=== PATIENT | male | born 1980 | race African-American/Black ===

== ENCOUNTER 2017-08-31 00:54 | Inpatient (IN) | payer MEDICARE, MEDICAID ==
[2017-08-31] VITALS (15 sets, daily range): BP systolic 105–163; BP diastolic 50–110
[~2017-08-31] VITALS: Ht 195.6 cm; Wt 109.8 kg
--- NOTE | 2017-08-31 01:15 | NUR ---
ER MD SCOTT AT BEDSIDE
[2017-08-31] MEDS ORDERED: IV NS 0.9% 1,000 ML BAG IV ONE ×4 (01:30→02:30)
--- NOTE | 2017-08-31 01:30 | NUR ---
NAHOMY KATE STARTED 18G RAC
--- NOTE | 2017-08-31 01:30 | NUR ---
BS IS 40. ER MADE AWARE
[2017-08-31] MEDS ORDERED: DEXTROSE 50%-WATER 50 ML DISP.SYRIN ONE ×3 (01:31→05:37)
--- NOTE | 2017-08-31 01:35 | NUR ---
BIB MOTHER C/O SOB TODAY, PER MOTHER PT ALTERED X "FEW DAYS." DEFECTIVE DEFIB REMOVED PER [facility] X1 MONTH AGO. PT HAS SOME SLIGHT APNEA BUT OTHERWISE STABLE. MOTHER AT BEDSIDE. WILL CONTINUE TO MONITOR FOR ANY CHANGES
--- NOTE | 2017-08-31 01:40 | NUR ---
EKG AT BEDSIDE
--- NOTE | 2017-08-31 01:42 | NUR ---
PT OFF TO CT SCAN
--- NOTE | 2017-08-31 01:48 | NUR ---
PER MOTHER "HE TOOK HIS AMBIEN AT 9PM"
[2017-08-31 01:53] LABS: BASOPHILS # (AUTO) 0.1 /CMM (0.0-0.2); BASOPHILS % (AUTO) 1.4 % (0.0-2.0); EOSINOPHILS % (AUTO) 0.3 % (0.0-6.0); HEMATOCRIT 42 % (39-51); HEMOGLOBIN 12.9 g/dL (13.5-17.5); INR 1.74 (0.87-1.13); LYMPHOCYTES # (AUTO) 2.8 /CMM (0.8-4.8); LYMPHOCYTES % (AUTO) 28.5 % (20.0-44.0); MEAN CORPUSCULAR HEMOGLOBIN 25 PG (26.0-33.0); MEAN CORPUSCULAR HGB CONC 31 g/dl (31.0-36.0); MEAN CORPUSCULAR VOLUME 80 fL (80-96); MONOCYTES # (AUTO) 0.8 /CMM (0.1-1.30); NEUTROPHILS # (AUTO) 6.1 /CMM (1.8-8.9); NEUTROPHILS % (AUTO) 61.8 % (43.0-81.0); PLATELET COUNT (AUTO) 175 /CMM (150-450); RDW COEFFICIENT OF VARIATION 20.6 (11.5-15.0); RED BLOOD CELL COUNT(AUTO) 5.22 MIL/uL (4.5-6.0); WHITE BLOOD COUNT (AUTO) 9.8 K/uL (4.3-11.0)
--- NOTE | 2017-08-31 01:55 | NUR ---
PT BACK FROM CT SCAN. STABLE
[2017-08-31 01:56] LABS: ALANINE AMINOTRANSFERASE 61 U/L (12-78); ALBUMIN 2.5 g/dL (3.4-5.0); ALCOHOL, BLOOD < 3 mg/dL (0-0); ALKALINE PHOSPHATASE 776 U/L (46-116); ASPARTATE AMINOTRANSFERASE 92 U/L (15-37); BILIRUBIN,DIRECT 2.2 mg/dL (0.0-0.2); BILIRUBIN,TOTAL 3.3 mg/dL (0.2-1.0); CALCIUM, SERUM 8.2 mg/dL (8.5-10.1); CARBON DIOXIDE 22 mmol/L (21-32); CHLORIDE 97 mmol/L (98-107); CREATININE 1.2 mg/dL (0.6-1.3); POTASSIUM 4.3 mmol/L (3.5-5.1); SODIUM SERUM 132 mmol/L (136-145); TOTAL PROTEIN, SERUM 8.4 g/dL (6.4-8.2); UREA NITROGEN, BLOOD 14 mg/dL (7-18)
[2017-08-31 01:58] LABS: GLUCOSE 40 mg/dL (74-106)
[2017-08-31 01:59] LABS: ACETAMINOPHEN 0 ug/ml (10-30); SALICYLATE < 0.2 mg/dL (2.8-20.0)
[2017-08-31 02:00] LABS: TROPONIN I 2.178 ng/mL (0.00-0.056)
[2017-08-31] MEDS ORDERED: DEXTROSE 50%-WATER 50 ML DISP.SYRIN IVP ONE ×3 (02:00→05:43)
--- NOTE | 2017-08-31 02:14 | NUR ---
PT TO ATTEMPT TO URINATE IN BATHROOM. NEXT STEP WILL BE IN/OUT CATHETER
--- NOTE | 2017-08-31 02:17 | NUR ---
JAYASHREE DIMPLING MACHINE OPERATOR CALLED AND LEFT MESSAGE. VEGETABLE GROWER ALSO NOTIFIED TO CALL DIMPLING MACHINE OPERATOR
--- NOTE | 2017-08-31 02:21 | NUR ---
RECEIVED CALL BACK FROM [employer]. COMMUNITY EDUCATOR STATED SHE WILL BE COMING IN WITHIN 30 MINUTES.
[2017-08-31] MEDS ORDERED: LIDOCAINE 2% JEL UROJET 10 ML MM ONE (02:22)
[2017-08-31] MEDS ORDERED: ASPIRIN 325 MG TABLET PO ONE (02:30)
[2017-08-31] MEDS ORDERED: ASPIRIN 325 MG TABLET ONE (02:30)
[2017-08-31 02:41] LABS: APPEARANCE,URINE CLEAR (CLEAR); BILIRUBIN,URINE 2+ (NEGATIVE); BLOOD, URINE 2+ Ery/uL (NEGATIVE); COLOR,URINE DARK YELLOW (YELLOW); KETONES,URINE NEGATIVE (NEGATIVE); LEUKOCYTE ESTERASE ,URINE NEGATIVE (NEGATIVE); NITRITE, URINE POSITIVE (NEGATIVE); PROTEIN,URINE 3+ mg/dl (NEGATIVE); UGLUCOSE NEGATIVE (NEGATIVE)
--- NOTE | 2017-08-31 02:41 | NUR ---
SHIRRING MACHINE OPERATOR AT BEDSIDE
[2017-08-31 02:44] LABS: BACTERIA,URINE Many /HPF (None Seen); SQUAMOUS EPITHELIAL CELL,UR Moderate /HPF (None Seen)
[2017-08-31] MEDS ORDERED: ZOLP5TAB2 PO (03:00)
[2017-08-31] MEDS ORDERED: INSU100C4 SQ (03:00)
[2017-08-31] MEDS ORDERED: CLIN300C11 PO (03:00)
[2017-08-31] MEDS ORDERED: INSU100V7 SQ (03:00)
--- NOTE | 2017-08-31 03:02 | NUR ---
REPORT GIVEN TO FILI
--- NOTE | 2017-08-31 03:27 | NUR ---
BS IS 111. CHRISTOS PORTILLO MADE AWARE
--- NOTE | 2017-08-31 03:51 | NUR ---
PT TO BE FORREST INSTEAD OF TELE
--- NOTE | 2017-08-31 03:51 | NUR ---
DR. SCOTT SPOKE TO TRACY LOZA REGARDING POC/ ADMISSION
--- NOTE | 2017-08-31 03:53 | NUR ---
called house superivisor for FORREST bed per MD [place]
[2017-08-31] MEDS ORDERED: HYDROCODONE/APAP 5/325MG 1 EACH TABLET PO PRN (04:00)
[2017-08-31] MEDS ORDERED: CEFTRIAXONE 1 G in IV D5W 50 ML IV SCH (04:00)
[2017-08-31] MEDS ORDERED: ONDANSETRON HCL/PF 4 MG/2 ML VIAL IVP PRN (04:00)
[2017-08-31] MEDS ORDERED: MAGNESIUM HYDROXIDE 30 ML UDC PO PRN (04:00)
[2017-08-31] MEDS ORDERED: VANCOMYCIN 1 GM in IV D5W 250 ML IV SCH (04:00)
[2017-08-31] MEDS ORDERED: MAG HYDROX/AL HYDROX/SIMETH 30 ML UDC PO PRN (04:00)
[2017-08-31] MEDS ORDERED: ACETAMINOPHEN 325 MG TABLET PO PRN (04:00)
--- NOTE | 2017-08-31 04:42 | NUR ---
PT TRANSFERRED PER [facility]S PROTOCOL.
[2017-08-31] MEDS ORDERED: CEFTRIAXONE 1 G VIAL ONE (05:11)
[2017-08-31] MEDS ORDERED: Sodium Chloride 154 MEQ in IV 10% DEXTROSE 1,000 ML IV PRN (06:00)
[2017-08-31] MEDS ORDERED: VANCOMYCIN 1 GM VIAL ONE (06:09)
--- NOTE | 2017-08-31 06:30 | NUR ---
RN NOTES 0445 AM - ADMITTED A 37 YEARS OLD MALE PT FROM ER DIAGNOSED WITH NSTEMI SECONDARY TO UTI POSSIBLE ENDOCARDITIS. UNDER SHAYLEE DAGO SENIOR TECHNICAL RECRUITER. WITH HISTORY OF BRADYCARDIA, SCHIZOPHRENIA, TOE INFECTION, SEIZURE, DEFECTIVE DEFIB, DEFIB REMOVED AT [facility] A MONTH AGO. ALLERGIC TO CARBAMAZEPINE, AND DIVALPROEX SODIUM. MOM AT BEDSIDE, PT IS MORE ALTERED COMPARE TO HIS BASELINE. TELE MONITOR PLACED REVEALS ST HR 109 SATING 100% COLD AND CLAMMY BS = 60 PT IS RESPONSIVE TO NAME AND ANSWERED A SHORT QUESTION.. IV SITE ON RAC G 18 INTACT AND PATENT WITH ONGOING NS BOLUS. BILATERAL PLANTAR FULL THICKNESS LOSS AND BLE LESIONS. AND LEFT KNEE. WOUND RIGHT [place] LESION, PHOTO TAKEN. 0530 - IV ROCEPHIN 1 G STARTED 0535 AM - BS CHECKED BS 60 MG/DL D 50% GIVEN RECHECKED AFTER 15 MINUTES PT BS 122 MG/DL. SENIOR TECHNICAL RECRUITER SHAYLEE ON THE FLOOR WITH ORDER ACKNOWLEDGE. 0630AM - VANCOMYCIN STARTED. PT IS MORE AWAKE AND ASKED TO CALL HER MOM, AND WATCH TV. CALL LIGHT KEPT WITHIN EASY REACH INSTRUCTION PROVIDED. WILL ENDORSED CONTINUITY OF CARE TO AM NURSE.
[2017-08-31] MEDS ORDERED: FEE PK DOSING 1 MIN EA MC ONE (07:26)
--- NOTE | 2017-08-31 07:30 | NUR ---
FORREST RN AM NOTES RCVD PT AWAKE AND ALERT X 1 -2, VERY LETHARGIC. ON 2 LPM, NOT IN ANY DISTRESS, TELEMETRY READS ST HR 112, DENIES PAIN, RT AC G18 IV SITE, PATENT. INTACT, ONGOING VANCO IV, SITE CLEAR, PT HAS WOUNDS OVER BILATERAL FEET AND SKIN DISCOLORATION THROUGHOUT THE BODY. BEDREST/USES URINAL. WILL CONTINUE TO MONITOR PT FOR SAFETY AND COMFORT. CALL LIGHT WITHIN REACH. BED IN LOW AND LOCKED POSITION.
[2017-08-31 08:19] LABS: MAGNESIUM 1.7 mg/dL (1.8-2.4); PHOSPHORUS 2.9 mg/dL (2.5-4.9)
[2017-08-31 08:24] LABS: TROPONIN I 2.087 ng/mL (0.00-0.056)
--- NOTE | 2017-08-31 08:24 | NUR ---
FORREST RN NOTES LACTIC ACID 6.1 TROPONIN 2.087. RELAYED TO ARLIN DANIELS TUBE SPLICER VIA EXCHANGE.
[2017-08-31] MEDS ORDERED: BLOO-668 IN (08:42)
[2017-08-31] MEDS ORDERED: INSU100V11 SQ (08:42)
[2017-08-31] MEDS: PANTOPRAZOLE 40 MG TABLET.DR PO SCH (08:54)
--- NOTE | 2017-08-31 09:30 | NUR ---
FORREST RN NOTES ADMINISTERED DUE MEDS.
[2017-08-31] MEDS ORDERED: IV D5/ 0.9% NACL 1,000 ML IV PRN (10:30)
--- NOTE | 2017-08-31 10:39 | NUR ---
FORREST RN NOTES LACTIC ACID 6.1 TROPONIN 2.087. DIANA MOLINA STUDENT FOR ARLIN DANIELS SAW PATIENT. PER DR. ARANA TO TRANSFER PATIENT TO ICU.
[2017-08-31] MEDS: Magnesium 1GM/D5W 100ML PREMIX 100 ML IV SCH ×2 (10:58→13:28)
[2017-08-31 11:33] LABS: SERUM AMMONIA 34 umol/L (11-32)
--- NOTE | 2017-08-31 11:45 | NUR ---
FORREST NAHOMY ESTRADA TRANSFERRED TO ICU RM 259.
[2017-08-31 11:46] LABS: THYROID STIMULATING HORMONE 4.095 uIU/mL (0.358-3.74)
[2017-08-31 11:47] LABS: B-TYPE NATRIURETIC PEPTIDE 2477 PG/ML (0-125); MAGNESIUM 1.6 mg/dL (1.8-2.4)
[2017-08-31 12:05] LABS: ABG BASE EXCESS -4.8 mmol/L; ABG OXYGEN SATURATION 92.3 % (92.0-98.5); ABG PCO2 29.8 mmHg (35.0-45.0); ABG PH 7.414 (7.350-7.450); ABG PO2 69.2 mmHg (75.0-100.0); AaDO2 44.8 mmHg; COHb 1.4 % (0.5-1.5); MetHb 0.7 % (0.0-1.5); O2Hb 90.4 % (94.0-97.0); SITE, ABG Right Radial; VENT MODE, BG ROOM AIR
--- NOTE | 2017-08-31 12:12 | NUR ---
TRANSFER TO STAKING ENGINEER NOTE RCVD PT AWAKE AND ALERT X2, SHOWING NO S/O DISTRESS/PAIN AT THIS TIME. ST ON TELE. ON RA TOLERATING WELL. PT HAS WOUNDS OVER BILATERAL FEET AND SKIN DISCOLORATION THROUGHOUT THE BODY. RIGHT AC #18 C/D/I/PATENT. NO S/O INFILTRATION/PHLEBITIS OBSERVED IVF INFUSING. WILL CONTINUE TO MONITOR PT FOR SAFETY AND COMFORT. CALL LIGHT WITHIN REACH. BED IN LOW AND LOCKED POSITION. PT'S MOM AT BEDSIDE UPDATED ON PT'S CONDITION.
--- NOTE | 2017-08-31 12:37 | NUR ---
ALTERATION TAILOR NOTE TRACY MCADAMS CALLED REGARDING LACTIC ACID TRENDING UP 6.4. HE RECOMMENDED TO BOLUS PT WITH NS 1L AND RE-CHECK LACTIC ACID. ORDERS ENTERED AND CARRIED OUT. WILL CONTINUE TO MONITOR.
[2017-08-31] MEDS ORDERED: IV NS 0.9% 1,000 ML IV PRN (13:00)
[2017-08-31] MEDS: BLOOD SUGAR DIAGNOSTIC 1 EACH STRIP IN SCH ×3 (13:28→21:22)
[2017-08-31] MEDS: VANCOMYCIN 1.25 GM in IV D5W 500 ML IV SCH ×2 (13:29→21:22)
[2017-08-31] MEDS ORDERED: GADOVERSETAMIDE 2.5 MMOL/5 ML VIAL IJ ONE (15:28)
[2017-08-31] MEDS ORDERED: GADOVERSETAMIDE 5 MMOL/10 ML VIAL IJ ONE (15:28)
[2017-08-31] MEDS ORDERED: FUROSEMIDE 100 MG/10 ML VIAL IV ONE ×2 (15:30→19:00)
[2017-08-31] MEDS: LACTOBACILLUS RHAMNOSUS GG 1 EACH CAP.SPRINK PO SCH (16:42)
[2017-08-31] MEDS: DOBUTamine 500 MG in IV D5W 210 ML IV PRN (18:48)
--- NOTE | 2017-08-31 19:05 | NUR ---
PROPERTY MAINTENANCE SUPERVISOR NOTE PT AWAKE AND ALERT X2, DELAYED SPEECH, ST ON TELE. REMAINS ON RA. BSC IN ROOM. IV SITES C/D/I/PATENT. NO S/O INFILTRATION/PHLEBITIS OBSERVED IVF INFUSING. PT'S CARE WILL BE ENDORSED TO MD DO RESIDENT URGENT CARE RN FOR CONTINUITY OF CARE. BED IN LOW AND LOCKED POSITION. CALL LIGHT WITHIN REACH. LASIX GIVEN ORDERED, EFFECT OF THE MEDICATION EXPLAINED TO PT, PT ACKNOWLEDGED. URINAL PROVIDED
--- NOTE | 2017-08-31 19:45 | NUR ---
RIVET MAKER DF RECEIVED PT TO ROOM#259 PT A/OX2 CONFUSION,LETHARGIC,DROWSY. PER PAST ADMISSION NOTED PT DOCUMENTED WITH MILD RETARDATION. PT KNOWS WHERE HE IS ORIENTED TO SELF/SITUATION. PT WAS OBSERVED STANDING AT BEDSIDE URINATING ON THE FLOOR. AT 1848 PT RECEIVED 100 MG LASIX IVP . PT HAS ORDER FOR QUEEN CATH(PT REFUSES F/C PT URINATING IN URINAL. I EDUCATED PT ON THE EFFECTS OF LASIX.BED IN LOW LOCKED POSITION WITH BED ALARM ON, CALL LIGHT IN REACH. I INSTRUCTED PT TO CALL FOR ASSISTANCE PRIOR TO GETTING OUT OF BED.PT VERBALIZES AN UNDERSTANDING. PT HAS ORDER FOR U/S ABM/LIVER.VSS. PT ON DOBUTAMINE GTT AT FIXED RATE OF 5MCG.D10 @ 30ML/HR PT HYPO GLYCEMIA ON ADMISSION. ACCU CHECK OF 126 @2030.
[2017-08-31] MEDS: PIPERACILLIN /TAZOBACTAM 3.375 G in IV D5W 50 ML IV SCH (21:22)
[2017-09-01] VITALS (24 sets, daily range): BP systolic 91–149; BP diastolic 48–94
--- NOTE | 2017-09-01 01:00 | NUR ---
HEALTH SPA MANAGER DF PT WITH BLOOD GLUCOSE OF 223 PT ON D10@30ML/HR, PT WAS PREVIOUSLY HYPOGLYCEMIC. PT HAS HX OF DM. I WILL FOLLOW UP WITH MD/SCHOOL ATTENDANCE SECRETARY REGARDING D10 AND PT WILL NEED SLIDING SCALE COVERAGE. POC WAIT AND SEE WHAT NEXT ACCU CHECK WILL BE IN 3-4 HOURS.
[2017-09-01] MEDS: BLOOD SUGAR DIAGNOSTIC 1 EACH STRIP IN SCH ×7 (01:01→22:16)
--- NOTE | 2017-09-01 03:22 | NUR ---
RICE DRYER MECHANIC DF PT REMOVED MID LINE TO LEFT UPPER ARM WITH TIP IN TACT. PT WAS RESTLESS IN BED PT KEPT TURNING OVER AND OVER, WRAPPED HIMSELF IN IV TUBING AND MIDLINE WAS REMOVED. PT VERY PASSIVE TO EDUCATION AND INSTRUCTIONS.PT DIFFICULT IV ACCESS, WILL ATTEMPT TO REINSERT ANOTHER IV LINE.
[2017-09-01] MEDS: VANCOMYCIN 1.25 GM in IV D5W 500 ML IV SCH ×2 (04:27→13:00)
[2017-09-01 05:30] LABS: BASOPHILS % (AUTO) 0.5 % (0.0-2.0); EOSINOPHILS % (AUTO) 0.1 % (0.0-6.0); HEMATOCRIT 36 % (39-51); HEMOGLOBIN 11.5 g/dL (13.5-17.5); LYMPHOCYTES # (AUTO) 1.1 /CMM (0.8-4.8); LYMPHOCYTES % (AUTO) 13.1 % (20.0-44.0); MEAN CORPUSCULAR HEMOGLOBIN 25 PG (26.0-33.0); MEAN CORPUSCULAR HGB CONC 32 g/dl (31.0-36.0); MEAN CORPUSCULAR VOLUME 79 fL (80-96); MONOCYTES # (AUTO) 0.6 /CMM (0.1-1.30); MONOCYTES % (AUTO) 8.1 % (2.0-12.0); NEUTROPHILS # (AUTO) 6.3 /CMM (1.8-8.9); NEUTROPHILS % (AUTO) 78.2 % (43.0-81.0); PLATELET COUNT (AUTO) 152 /CMM (150-450); RDW COEFFICIENT OF VARIATION 21.3 (11.5-15.0); RED BLOOD CELL COUNT(AUTO) 4.54 MIL/uL (4.5-6.0)
[2017-09-01 05:40] LABS: CALCIUM, SERUM 7.2 mg/dL (8.5-10.1); CARBON DIOXIDE 23 mmol/L (21-32); CHLORIDE 101 mmol/L (98-107); CREATININE 1.1 mg/dL (0.6-1.3); GLUCOSE 274 mg/dL (74-106); POTASSIUM 3.8 mmol/L (3.5-5.1); SODIUM SERUM 132 mmol/L (136-145); UREA NITROGEN, BLOOD 14 mg/dL (7-18)
[2017-09-01 05:46] LABS: ALANINE AMINOTRANSFERASE 55 U/L (12-78); ALBUMIN 1.9 g/dL (3.4-5.0); ALKALINE PHOSPHATASE 553 U/L (46-116); ASPARTATE AMINOTRANSFERASE 79 U/L (15-37); BILIRUBIN,TOTAL 3.2 mg/dL (0.2-1.0); MAGNESIUM 1.4 mg/dL (1.8-2.4); PHOSPHORUS 2.1 mg/dL (2.5-4.9); TOTAL PROTEIN, SERUM 6.5 g/dL (6.4-8.2)
[2017-09-01] MEDS ORDERED: CEFTRIAXONE 1 G in IV D5W 50 ML IV SCH (06:00)
[2017-09-01 06:05] LABS: TROPONIN I 1.966 ng/mL (0.00-0.056)
[2017-09-01] MEDS: PIPERACILLIN /TAZOBACTAM 3.375 G in IV D5W 50 ML IV SCH ×4 (06:36→23:33)
--- NOTE | 2017-09-01 06:46 | NUR ---
HEATING AND VENTILATING TENDER DF PT REFUSES CONTINUOUS PULSE OXIMETER MONITORING. PT AGREES TO BE CHECKED Q 1 HOUR. VSS.
--- NOTE | 2017-09-01 06:51 | NUR ---
BOX SPRING UPHOLSTERER DF PAGED INSPECTOR CANNED FOOD RECONDITIONING EPIC STAINED GLASS JOINER/MD PT GLUCOSE OF 243/273 ON LAB DRAW. PT ON D10@30ML/HR. VSS.NAD NOTED.
[2017-09-01] MEDS: LACTOBACILLUS RHAMNOSUS GG 1 EACH CAP.SPRINK PO SCH ×2 (08:16→17:14)
[2017-09-01] MEDS: PANTOPRAZOLE 40 MG TABLET.DR PO SCH (08:16)
[2017-09-01] MEDS: FUROSEMIDE 100 MG/10 ML VIAL IV SCH ×3 (08:16→15:30)
[2017-09-01] MEDS: DOBUTamine 500 MG in IV D5W 210 ML IV PRN ×2 (08:17→17:25)
[2017-09-01] MEDS: POTASSIUM CL. PREMIX PERIPHER. 50 ML IV SCH ×4 (09:17→12:19)
[2017-09-01] MEDS ORDERED: SILVER NITRATE APPLICATOR 1 EA BOX TP STA (09:41)
[2017-09-01 11:10] LABS: *SPE A/G RATIO 0.6 (0.7-1.7); *SPE ALBUMIN 2.5 g/dL (2.9-4.4); *SPE ALPHA-1-GLOBULIN 0.2 g/dL (0.0-0.4); *SPE ALPHA-2-GLOBULIN 0.3 g/dL (0.4-1.0); *SPE BETA GLOBULIN 1.2 g/dL (0.7-1.3); *SPE GLOBULIN, TOTAL 4.4 g/dL (2.2-3.9); *SPE M-SPIKE Not Observed g/dL (Not Observed); *SPEGAMMA GLOBULIN 2.6 g/dL (0.4-1.8)
[2017-09-01] MEDS: Magnesium 1GM/D5W 100ML PREMIX 100 ML IV SCH ×4 (11:11→14:20)
--- NOTE | 2017-09-01 11:27 | NUR ---
WOUND CARE CONSULT PATIENT SEEN AND SKIN INTEGRITY ASSESSMENT DONE WITH THE EXCEPTION OF THE BILATERAL FEET. BILATERAL FEET AND ULCERS DEFERRED TO PODIATRY SURGEON DR RANDOLPH FOR CONSULT AND TREATMENT PLAN. PATIENT CURRENTLY WITHOUT ANY SKIN BREAKDOWN TO THE SACRAL REGION OR BACK. PATIENT NOTED TO HAVE MULTIPLE DRY SCARS/LESIONS TO THE BILATERAL LOWER EXTREMITIES. PATIENT ABLE TO MOVE ALL EXTREMITIES AND ABLE TO REPOSITION HIMSELF IN BED. AT TIMES DOES NEED SOME PROMPTING. RECOMMEND CONTINUE TO ASSIST PATIENT WITH TURNING AND OFF LOADING. HAD BRET AT THIS TIME. PATIENT WITH CARMEN AT 17. ALL SKIN MANAGEMENT DISCUSSED WITH NURSING AT THE BEDSIDE.
--- NOTE | 2017-09-01 11:37 | NUR ---
CARDIO TECH NOTE 0720: Received patient awake, A/Ox2. With episodes of pulling out IV lines from previous shift. S/E by Dr. Llamas, with order of Lasix 80mg x3 doses. Tolerated room air. No c/o any discomfort at this time. On 5mcg of Dobutamine, VSS at this time. ST 120's. 0830: Noted with episode of peeing in the bed. Cleaned patient and started Gunn cath. S/E by Livia MOLINA, made aware for LA 3.1 but have to give Lasix. Obtained order for PICC insertion for only 1PIV now and still on Dobutamine. Called mother Traci but no answer, awaiting call back. 0900: BS 274, held D5NS, made Livia MOLINA aware, awaiting orders, will continue holding for now, patient ate 100% on breakfast. 1000: Done with bilateral feet debridement by Dr. Jorge. Patient tolerated procedure well. 1120: S/E by wound consult. Continue skin treatments as ordered. No any significant changes noted at this time. Will continue to monitor.
[2017-09-01] MEDS ORDERED: K PHOS NEUTRAL 250 MG TABLET PO ONE (12:00)
[2017-09-01] MEDS ORDERED: FLUPHENAZINE HCL 10 MG TABLET PO SCH (13:00)
[2017-09-01] MEDS ORDERED: BENZTROPINE MESYLATE (1 MG) 1 MG TABLET PO PRN (13:00)
[2017-09-01] MEDS ORDERED: FLUPHENAZINE HCL 10 MG TABLET PO PRN (13:00)
[2017-09-01] MEDS ORDERED: BENZTROPINE MESYLATE (1 MG) 1 MG TABLET PO SCH (13:00)
[2017-09-01] MEDS ORDERED: DEXTROSE 50%-WATER 50 ML DISP.SYRIN IV PRN (14:00)
[2017-09-01] MEDS: INSULIN REGULAR, HUMAN 100 UNIT/ML 3 ML VIAL SQ PRN ×3 (14:21→22:15)
--- NOTE | 2017-09-01 15:42 | NUR ---
ROLL MECHANIC NOTE Mother at bedside, updated re: patient's condition. She is holding the consent for the PICC line until talked to MD's, given Livia MOLINA and Dr. Llamas as requested. Showed BLE SP wound debridement as requested, happy for the wound appearance now. Informed re: new orders, she is not happy re: Prolixin order. Called Dr. Cunha to inform. Informed mother re: the risks of having pressors on PIV and should be done through PICC. Said she will call MDs now. I told her i tried calling her 5x since this morning and left messages x2 but no answer.
[2017-09-01] MEDS ORDERED: FUROSEMIDE 100 MG/10 ML VIAL IV SCH (17:30)
--- NOTE | 2017-09-01 17:52 | NUR ---
CERTIFIED HISTOLOGIC TECHNICIAN NOTE Traci, mother spoke with Dr. Cunha and made aware that patient becomes more agitated and combative on Prolixin, and refused for the son to take. Mother spoke with Livia SEAMLESS TUBE MILL OPERATOR and SEAMLESS TUBE MILL OPERATOR explained need of Dobutamine and explained to mother to have PICC on administering Dobutamine. Traci said she will call again Dr. Wu, the primary cardio of the patient, unable to get hold at this time. Mother aware for the risk of taking Dobutamine via PIV, but still does not want to sign consent still at this time.
--- NOTE | 2017-09-01 18:13 | NUR ---
CHIROPRACTIC DOCTOR NOTE Mother left and told her to call later once she is decided for the PICC line consent.
--- NOTE | 2017-09-01 19:30 | NUR ---
ICU/RN. RECEIVED PT SLEEPING BUT AROUSES EASILY,OX3.MONITOR SHOWS SINUS TACHY W/OUT ECTOPICS.OFFERS NO COMPLAINTS.
--- NOTE | 2017-09-01 19:30 | NUR ---
ICU/RN. ON DOBUTAMINE DRIP AT 5MCG/KG/MIN,FOR EF 20-25%.
--- NOTE | 2017-09-01 20:15 | NUR ---
ICU/RN MOTHER CALLED TO GET AN UPDATE,CONDITION REPORT GIVEN.
[2017-09-01] MEDS ORDERED: VANCOMYCIN 1.25 GM in IV D5W 500 ML IV SCH (21:00)
--- NOTE | 2017-09-01 21:00 | NUR ---
ICU/RN PT SCREAMING AND ANGRY RE=PHONE NOT WORKING AND SCREAMED ([facility],I SWEAR TO GOD.)STAYED W/ PT FOR AWHILE LISTENING TO HIS COMPLAINTS.WENT TO LOOK FOR ANOTHER PHONE AND PT. ATTEMPTED TO CALL HIS MOM BUT HER PHONE IS NOT WORKING.PT AT TIMES LAUGHING SO HARD,AT TIMES TALKING TO SELF AND WHISPERING.APOLOGIZED TO ME WITHIN FEW MINUTES FOR HIS BEHAVIOR.
[2017-09-02] VITALS (15 sets, daily range): BP systolic 88–136; BP diastolic 43–75
[2017-09-02 04:44] LABS: BASOPHILS % (AUTO) 0.4 % (0.0-2.0); EOSINOPHILS % (AUTO) 0.4 % (0.0-6.0); HEMATOCRIT 33 % (39-51); HEMOGLOBIN 10.8 g/dL (13.5-17.5); LYMPHOCYTES # (AUTO) 1.7 /CMM (0.8-4.8); LYMPHOCYTES % (AUTO) 18.6 % (20.0-44.0); MEAN CORPUSCULAR HEMOGLOBIN 26 PG (26.0-33.0); MEAN CORPUSCULAR HGB CONC 32 g/dl (31.0-36.0); MEAN CORPUSCULAR VOLUME 79 fL (80-96); MONOCYTES # (AUTO) 0.6 /CMM (0.1-1.30); MONOCYTES % (AUTO) 6.8 % (2.0-12.0); NEUTROPHILS # (AUTO) 6.7 /CMM (1.8-8.9); NEUTROPHILS % (AUTO) 73.8 % (43.0-81.0); PLATELET COUNT (AUTO) 155 /CMM (150-450); RDW COEFFICIENT OF VARIATION 21.8 (11.5-15.0); RED BLOOD CELL COUNT(AUTO) 4.23 MIL/uL (4.5-6.0)
[2017-09-02 04:59] LABS: ALBUMIN 1.7 g/dL (3.4-5.0); BILIRUBIN,TOTAL 2.7 mg/dL (0.2-1.0); CALCIUM, SERUM 7.2 mg/dL (8.5-10.1); MAGNESIUM 1.5 mg/dL (1.8-2.4); PHOSPHORUS 1.8 mg/dL (2.5-4.9); POTASSIUM 3.2 mmol/L (3.5-5.1); TOTAL PROTEIN, SERUM 6.2 g/dL (6.4-8.2)
--- NOTE | 2017-09-02 05:00 | NUR ---
ICU/RN OFFERED BED BATH BUT FLATLY REFUSED.
[2017-09-02 05:20] LABS: TROPONIN I 2.004 ng/mL (0.00-0.056)
[2017-09-02] MEDS: PIPERACILLIN /TAZOBACTAM 3.375 G in IV D5W 50 ML IV SCH ×3 (05:35→17:45)
--- NOTE | 2017-09-02 07:05 | NUR ---
INSURANCE OFFICE MANAGER NOTES RECEIVED PATIENT AOX2 DELAYED SPEECH , WITH EPISODES OF AGITATION , TALKING TO HIMSELF , DENIES AND SUICIDAL OR HOMICIDAL IDEATION , DENIES SEEING OR HEARING VOICES AT THIS TIME , SPO2 OF 100% VIA RA , NOT IN ACUTE DISTRESS , SR 115 ON BEDSIDE MONITOR , FC DRAINING VIA GRAVITY WITH CLEAR YELLOW URINE , BILATERAL FOOT DRESSING C/D/I , IV OF L AC # 20 WITH NS @ TKO , DOBUTAMINE HELD AWAITING FOR PHARMACY TO DELIVER NEW BAG , ALL NEEDS ATTENDED , BED ON LOW AND LOCKED POSITION , SIDE RAILS X2 ,CALL LIGHT WITHIN REACH , HOB @ 35 , WILL CONTINUE TO MONITOR
--- NOTE | 2017-09-02 07:30 | NUR ---
SECONDARY HISTORY TEACHER NOTES PATIENT IS AGITATED , UNCOOPERATIVE , VERBALIZING THAT QUEEN CATHETER IS UNCOMFORTABLE , EXPLAINED THE BENEFITS OF QUEEN CATHETER FOR MEDICAL MANAGEMENT , PATIENT STILL AGITATED AND ANGRY VERBALIZED THAT " HE WILL PULL OUT THE CATHETER " REMOVED QUEEN CATHETER REQUESTED NOTED WITH 300ML OF CLEAR YELLOW URINE , URINAL AT BEDSIDE , WILL CONTINUE TO MONITOR
[2017-09-02] MEDS: BLOOD SUGAR DIAGNOSTIC 1 EACH STRIP IN SCH ×3 (07:39→17:45)
[2017-09-02] MEDS: PANTOPRAZOLE 40 MG TABLET.DR PO SCH (07:45)
[2017-09-02] MEDS: DOBUTamine 500 MG in IV D5W 210 ML IV PRN (07:46)
[2017-09-02] MEDS: LACTOBACILLUS RHAMNOSUS GG 1 EACH CAP.SPRINK PO SCH ×2 (08:02→17:44)
--- NOTE | 2017-09-02 08:54 | NUR ---
MEDICAL RECEPTION NOTES SEEN AND EVALUATED BY ABBE DANIELS , DISCUSSED LABS , CURRENT V/S SPO2 OF 100% VIA RA WITH NO DISTRESS , AFEBRILE , PT AOX2 WITH EPISODES OF AGITATION , S/P FOOT DEBRIDEMENT YESTERDAY BY DR GARRISON , DRESSING C/D/I , ON DOBUTAMINE @ 5MCG INFUSING WELL VIA L AC # 20 PENDING PICC LINE INSERTION ,
--- NOTE | 2017-09-02 08:57 | NUR ---
SOLUTION ANALYST NOTES SEEN AND EVALUATED BY DR ARANA , MOTHER AT BEDSIDE UPDATING ABOUT PT CONDITION ,
[2017-09-02] MEDS ORDERED: POTASSIUM CHLORIDE 20 MEQ TAB.PRT.SR PO ONE (09:00)
[2017-09-02] MEDS: NEUTRA PHOS 1 POWD.PACKET PO SCH ×2 (09:47→17:45)
[2017-09-02] MEDS: Magnesium 1GM/D5W 100ML PREMIX 100 ML IV SCH ×2 (09:50→11:17)
--- NOTE | 2017-09-02 10:25 | NUR ---
RN NOTES PT ON DOBUTAMINE AT 5MCG/KG/MIN , PT ON TELE , HR IN 110'S, ST, CONTINUE TO MONITOR
--- NOTE | 2017-09-02 10:25 | NUR ---
RN NOTE PATIENT CAME FROM ICU. ALERT AND ORIENTED, HE IS ABLE TO MAKE THINGS KNOWN. BREATHING EVEN AND UNLABORED WITH NO SOB OR DISTRESS NOTED. ON OCULARIST SINUS TACHY HR OF 110. LEFT WRIST IV SITE INTACT AND PATENT, NO S/SX OF INFILTRATION/INFECTION NOTED. ALL SAFETY AND COMFORT MEASURES PROVIDED. BED IN LOW POSITION AND LOCKED. PLACED CALL LIGHT WITHIN REACH. WILL CONTINUE TO MONITOR PLAN OF CARE AND CLOSELY. Addendum: 09/02/17 at 1107 by JASPREET NOLEN RN CORRECTION LEFT FA IV SITE G 22 AND R HAND IV G 20
[2017-09-02] MEDS: INSULIN REGULAR, HUMAN 100 UNIT/ML 3 ML VIAL SQ PRN ×2 (11:40→17:46)
[2017-09-02] MEDS ORDERED: NITROFURANTOIN/NITROFURAN MAC 100 MG CAPSULE PO SCH ×2 (17:00)
--- NOTE | 2017-09-02 18:50 | NUR ---
RN NOTE PATIENT REMAINED STABLE THROUGHOUT SHIFT. BREATHING EVEN UNLABORED WITH NO SOB OR DISTRESS NOTED. HE IS ABLE TO MAKE THINGS KNOWN WITH EPISODES OF CONFUSION. COOPERATIVE WITH CARE. PATIENT CONTINUES TO RECEIVE DOBUTAMINE AT 5MCG/KG/MIN. VITAL SIGNS REMAINS STABLE. IV SITES ARE INTACT AND PATENT. BED LOW, LOCKED POSITIONED. WILL ENDORSE TO NEXT SHIFT TO CONTINUE CONTINUITY OF CARE.
--- NOTE | 2017-09-02 19:20 | NUR ---
FORREST RN OPENING NOTES RECEIVED REPORT FROM GLADIS COREA. PATIENT A/A/O X2-3, ABLE TO VERBALIZE NEEDS. BREATHING EVEN & UNLABORED, TOLERATING ROOM AIR. ON TELE W/ SINUS RHYTHM, HR 124. DENIES ANY CHEST PAIN OR DISCOMFORT. RIGHT HAND IV #20 INTACT & PATENT W/ DRESSING CDI & DOBUTAMIN @ 5 MCG/KG/HR RUNNING CONTINUOUSLY. LEFT AC IV #22 INTACT W/ DRESSING CDI, TKO. SKIN WARM, DRY & INTACT. PATIENT ABLE TO SIT ON EDGE OF BED INDEPENDENTLY & ABLE TO USE URINAL. SAFETY MEASURES IN PLACE W/ SIDE RAILS UP, BED LOCKED & IN LOWEST POSITION & CALL LIGHT WITHIN REACH. INSTRUCTED TO CALL FOR ASSISTANCE. WILL CONTINUE TO MONITOR.
--- NOTE | 2017-09-02 21:20 | NUR ---
FORREST RN NOTES PATIENT BECAME AGITATED AND STATING WANTING TO GO HOME. HE PULLED OUT ONE IV AND STARTED YELLING AT NURSES. MOM, JOSETTE CAME BUT PATIENT STILL CONTINUED TO BE AGITATED & AGGRESSIVE, WANTING TO LEAVE AMA. ACCORDING TO MOM, PATIENT CAN MAKE DECISIONS FOR HIMSELF AND IF HE WANTS TO LEAVE, THEN HE CAN. EXPLAINED RISKS & BENEFITS OF LEAVING AMA TO PATIENT INCLUDING POSSIBLE D/T TO HIS DIAGNOSIS. PATIENT STILL WANTED TO LEAVE. SHAYLEE LOZA NOTIFIED OF SITUATION & NURSING MANAGER SCIENTIFIC AWARE. PATIENT TRANSPORTED OUT IN WHEELCHAIR W/ MOMJOSETTE. AMA FORM & BELONGINGS LIST SIGNED. 2ND IV ALSO REMOVED.
== END 2017-09-02 21:19 | disposition home or self-care (01) | DRG 853 ==
LOC: ER 00:55 → TELE 02:32 → TELE-TD 04:23 → ICU 11:30 → TELE-TD 09-02 10:06
PROVIDERS: ADMIT Nurse Practitioner Acute Care; ATTEND Nurse Practitioner Acute Care
PROC: 05HC33Z Insertion of Infusion Device into Left Basilic Vein, Percutaneous Approach (ICD-10-PCS; 2017-08-31)
PROC: B54NZZA Ultrasonography of Left Upper Extremity Veins, Guidance (ICD-10-PCS; 2017-08-31)
PROC: 0HBHXZX Excision of Right Upper Leg Skin, External Approach, Diagnostic (ICD-10-PCS; 2017-08-31)
PROC: 0KBW0ZZ Excision of Left Foot Muscle, Open Approach (ICD-10-PCS; principal; 2017-09-01)
PROC: 0KBV0ZZ Excision of Right Foot Muscle, Open Approach (ICD-10-PCS; 2017-09-01)
DX: A41.9 Sepsis, unspecified organism (principal); I21.4 Non-ST elevation (NSTEMI) myocardial infarction; J96.90 Respiratory failure, unspecified, unspecified whether with hypoxia or hypercapnia; E43 Unspecified severe protein-calorie malnutrition; G92 Toxic encephalopathy; E87.1 Hypo-osmolality and hyponatremia; R16.0 Hepatomegaly, not elsewhere classified; E11.42 Type 2 diabetes mellitus with diabetic polyneuropathy; R18.8 Other ascites; I31.3 Pericardial effusion (noninflammatory); E87.2 Acidosis; I38 Endocarditis, valve unspecified; J98.11 Atelectasis; N39.0 Urinary tract infection, site not specified; I42.9 Cardiomyopathy, unspecified; M86.672 Other chronic osteomyelitis, left ankle and foot; M86.671 Other chronic osteomyelitis, right ankle and foot; F05 Delirium due to known physiological condition; I50.22 Chronic systolic (congestive) heart failure; E88.09 Other disorders of plasma-protein metabolism, not elsewhere classified; R65.20 Severe sepsis without septic shock; E11.649 Type 2 diabetes mellitus with hypoglycemia without coma; E03.9 Hypothyroidism, unspecified; E66.9 Obesity, unspecified; F17.210 Nicotine dependence, cigarettes, uncomplicated; E11.51 Type 2 diabetes mellitus with diabetic peripheral angiopathy without gangrene; E87.6 Hypokalemia; Z91.19 Patient's noncompliance with other medical treatment and regimen; R21 Rash and other nonspecific skin eruption; I34.0 Nonrheumatic mitral (valve) insufficiency; E11.621 Type 2 diabetes mellitus with foot ulcer; L97.513 Non-pressure chronic ulcer of other part of right foot with necrosis of muscle; L97.523 Non-pressure chronic ulcer of other part of left foot with necrosis of muscle; B96.20 Unspecified Escherichia coli [E. coli] as the cause of diseases classified elsewhere; E11.69 Type 2 diabetes mellitus with other specified complication; R74.0 Nonspecific elevation of levels of transaminase and lactic acid dehydrogenase [LDH]; F20.9 Schizophrenia, unspecified; Z68.28 Body mass index [BMI] 28.0-28.9, adult; D64.9 Anemia, unspecified; E80.6 Other disorders of bilirubin metabolism; Z79.4 Long term (current) use of insulin; Z95.810 Presence of automatic (implantable) cardiac defibrillator; B95.0 Streptococcus, group A, as the cause of diseases classified elsewhere; B96.89 Other specified bacterial agents as the cause of diseases classified elsewhere; I70.203 Unspecified atherosclerosis of native arteries of extremities, bilateral legs
CPT/HCPCS: 36415; 36569; 36600; 70450-TC; 71045-TC; 73620-TC; 76705-TC; 80048-TC; 80053-TC; 80061-TC; 80074; 80076-TC; 80202-TC; 80305; 81000-TC; 82140-TC; 82306; 82962-TC; 83605-TC; 83735-TC; 83880; 84100-TC; 84155; 84165; 84439-TC; 84443-TC; 84484-TC; 85025-TC; 85730-TC; 87040-TC; 87070-TC; 87081-TC; 87086-TC; 87186-TC; 88305-TC; 93307-TC; A4606; A6402; A6403; A9579; C1751; G0480; J0696; J1250; J1815; J1940; J2543; J3370; J3475; J3480; J3490; J7030; J7042; J7050; J7060; Z7610